=== PATIENT | female | born 1990 | race Caucasian/White ===

== ENCOUNTER 2018-11-04 17:31 | Emergency (ER) | payer OTHER ==
[2018-11-04 17:37] VITALS: BMI 23.8
[2018-11-04] MEDS ORDERED: SODIUM CHLORIDE 1,000 ML IV STA (18:17)
[2018-11-04] MEDS ORDERED: ONDANSETRON 4 MG/2 ML VIAL IVPUSH ONE (18:17)
[2018-11-04] MEDS ORDERED: ACETAMINOPHEN 1000 MG/100 ML VIAL (NON FORMULARY) IVPB ONE (18:17)
--- NOTE | 2018-11-04 18:24 | PDOC ---
History of Present Illness - General Chief Complaint: Injury Stated Complaint: PELVIC PAIN/ FALL/ 8WKS Time Seen by Provider: 11/04/18 18:08 History Source: Patient Exam Limitations: No Limitations - History of Present Illness Travel History: No Initial Comments: 11/04/18 18:19 HISTORY OF PRESENT ILLNESS: 28-year-old woman presents emergency department for evaluation of epigastric pain which is been present for the past 3 weeks. Patient reports the pain is constant but worsens after she eats. Patient reports this causes intermittent nausea with vomiting. Patient improved after she vomits but is still present. Patient reports she was seen at [facility] for similar complaints approximately 2 weeks ago was referred to OB/ BUSINESS REPRESENTATIVE at that time. She has not followed up with [employer] as her insurance is currently not active. While patient was leaving her apartment to come to the emergency department for evaluation she slipped while walking down the stairs landing on her rear end and falling down the final 3 steps of a staircase. Stairs are made of metal were not carpeted. Patient denies any vaginal bleeding but does report some lower abdominal pain after the fall. She denies head trauma or back pain. Denies LOC. No recent travel or sick contacts. PAST MEDICAL HISTORY: Denies past medical history SURGICAL HISTORY: Denies ALLERGIES: No known drug allergies REVIEW OF SYSTEMS General/Constitutional: Denies fever or chills. Denies weakness, weight change. HEENT: Denies change in vision. Denies ear pain or discharge. Denies sore throat. Cardiovascular: Denies chest pain or shortness of breath. Respiratory: Denies cough, wheezing, or hemoptysis. Gastrointestinal: see HPI Genitourinary: Denies dysuria, frequency, or change in urination. Musculoskeletal: Denies joint or muscle swelling or pain. Denies neck or back pain. Skin and breasts: Denies rash or easy bruising. Neurologic: Denies headache, vertigo, loss of consciousness, or loss of sensation. Psychiatric: Denies depression or anxiety. Endocrine: Denies increased thirst. Denies abnormal weight change. Hematologic/Lymphatic: Denies anemia, easy bleeding, or history of blood clots. Allergic/Immunologic: Denies hives or skin allergy. Denies latex allergy. PHYSICAL EXAM General Appearance: Well-appearing, appropriately dressed. No apparent distress , no intoxication. Neck: Supple. Trachea midline. No tenderness, rigidity, carotid bruit, stridor , lymphadenopathy, or thyromegaly. Respiratory/Chest: Lungs CTAB. No shortness of breath, chest tenderness, respiratory distress, accessory muscle use. No crackles, rales, rhonchi, stridor , wheezing, dullness Cardiovascular: RRR. S1, S2. No JVD, murmur, bradycardia, tachycardia. Vascular Pulses: Dorsalis-Pedis (R): 2+, Dorsalis-Pedis (L): 2+ Gastrointestinal/Abdominal: Normal bowel sounds. Abdomen soft, non-distended. Epigastric tenderness. No rebound tenderness. No organomegaly, pulsatile mass, guarding, hernia, hepatomegaly, splenomegaly. Musculoskeletal/Extremities: Normal inspection. FROM of all extremities, normal capillary refill. Pelvis Stable. No CVA tenderness. No tenderness to extremities, pedal edema, swelling, erythema or deformity. Integumentary: Appropriate color, dry, warm. No cyanosis, erythema, jaundice or rash Neurologic: pmo project manager II-XII intact. Fully oriented, alert. Appropriate mood/affect. Motor strength 5/5. No appreciable EOM palsy, facial droop or sensory deficit. Past History - Past Medical History Allergies/Adverse Reactions: Allergies Allergy/AdvReac Type Severity Reaction Status Date / Time No Known Allergies Allergy Verified 11/04/18 17:37 Home Medications: Ambulatory Orders NK [No Known Home Medication] 11/04/18 COPD: No - Suicide/Smoking/Psychosocial Hx Smoking History: Never smoked *Physical Exam - Vital Signs Last Vital Signs Temp Pulse Resp BP Pulse Ox 98.6 F 78 18 100/59 L 99 11/04/18 17:34 11/04/18 17:34 11/04/18 17:34 11/04/18 17:34 11/04/18 17:34 ED Treatment Course - LABORATORY CBC & Chemistry Diagram: 11/04/18 19:00 11/04/18 19:00 - RADIOLOGY Radiology Studies Ordered: Category Date Time Status GALLBLADDER US [US] Stat Ultrasound 11/04/18 18:18 Ordered TRANSVAGINAL US PREG [US] Stat Ultrasound 11/04/18 18:18 Ordered Medical Decision Making - Medical Decision Making 11/04/18 18:24 A/P: 28-year-old female with upper abdominal pain for 3 weeks and lower abdominal pain starting today status post fall on stairs Epigastric tenderness upon palpation Differential diagnosis includes but is not limited to cholecystitis, gastritis, pancreatitis, GERD, infection, abruption of placenta Labs including lipase and beta hCG Urine including culture Normal saline 1 bolus Zofran 4 mg intravenous Tylenol 1 g intravenous Ultrasound of the gallbladder Transvaginal ultrasound Reassess 11/04/18 21:33 Transvaginal ultrasound as read by imaging char conveyor tender: Single live intrauterine gestation at approximately 7 weeks and 6 days based on today's measurements with a heart rate of 159 beats per minute. Nabothian cyst in the cervix which appears closed. 9 mm left ovarian corpus luteal cyst. Right maternal ovary appears normal. No evidence of torsion. No significant free pelvic fluid. Right upper quadrant ultrasound as read by imaging char conveyor tender: No sonographic evidence for cholelithiasis or cholecystitis. No evidence of biliary obstruction. The liver is unremarkable and without enlargement. The right kidney is within normal limits without hydronephrosis. CBC is unremarkable. Chemistries are unremarkable. Beta hCG 100,840. Urine is pending 11/04/18 22:49 Urinalysis is not suggestive of infection. I will discharge the patient home to follow-up with her OB for continued care. I discussed the physical exam findings, ancillary test results and final diagnoses with the patient. I answered all of the patient's questions. The patient was satisfied with the care received and felt comfortable with the discharge plan and treatment plan. The patient will call their primary care physician within 24 hours to arrange follow-up and will return to the Emergency Department with any new, persistent or worsening symptoms. *DC/Admit/Observation/Transfer Diagnosis at time of Disposition: Abdominal pain during intrauterine GERD (gastroesophageal reflux disease) Qualifiers: Esophagitis presence: esophagitis presence not specified Qualified Code(s): K21.9 - Gastro-esophageal reflux disease without esophagitis - Discharge Dispostion Disposition: HOME Condition at time of disposition: Fair Decision to Admit order: No - Referrals - Patient Instructions Additional Instructions: Rest, drink lots of fluids: Teas, water, soups Maricruz dano, carbonated beverages for the bubbles May try peppermint teas Avoid heavy , spicy or fatty foods until symptoms have resolved Avoid contact with others until fevers and symptoms resolved Lots of handwashing and good hygiene Continue [id number] medications for symptomatic relief Tylenol for fever and pain Followup with private physician in one to 2 days as needed Return to emergency department for worsened symptoms, fevers, dehydration - Post Discharge Activity
[2018-11-04] MEDS ORDERED: ACETAMINOPHEN INJECTION 100 ML IVPB ONE (18:36)
[2018-11-04] MEDS ORDERED: ONDANSETRON 4 MG/2 ML VIAL ONE (18:36)
[2018-11-04 19:57] LABS: BASO % 0.6 % (0-2.0); EOS % 3.6 % (0-4.5); HEMATOCRIT 40.4 % (32.4-45.2); HEMOGLOBIN 13.2 GM/dL (10.7-15.3); LYMPH % 28.1 % (8-40); MCH 29.6 pg (25.7-33.7); MCHC 32.7 g/dl (32.0-36.0); MEAN CELL VOLUME 90.5 fl (80-96); MONO % 5.5 % (3.8-10.2); NEUT % 62.2 % (42.8-82.8); PLATELET COUNT 271 K/MM3 (134-434); RBC 4.47 M/mm3 (3.60-5.2); RDW 12.8 % (11.6-15.6); WHITE BLOOD COUNT 10.7 K/mm3 (4.0-10.0)
[2018-11-04 21:27] LABS: ALBUMIN 3.3 g/dl (3.4-5.0); BILIRUBIN,TOTAL 0.2 mg/dL (0.2-1); BLOOD UREA NITROGEN 11.1 mg/dL (7-18); CALCIUM 8.8 mg/dL (8.5-10.1); CREATININE 0.6 mg/dL (0.55-1.3); POTASSIUM 4.5 mmol/L (3.5-5.1)
[2018-11-04 22:44] LABS: URINE APPEARANCE CLEAR; URINE BILIRUBIN NEGATIVE (NEGATIVE); URINE COLOR YELLOW; URINE GLUCOSE (UA) NEGATIVE (NEGATIVE); URINE KETONE NEGATIVE (NEGATIVE); URINE LEUK ESTERASE NEGATIVE (NEGATIVE); URINE NITRITE NEGATIVE (NEGATIVE); URINE PROTEIN NEGATIVE (NEGATIVE); URINE UROBILINOGEN 0.2 mg/dL (0.2-1.0)
[2018-11-04 23:07] VITALS: BP 104/44; PULSE 64; TEMP 98.1
--- NOTE | 2018-11-05 13:12 | EKG ---
Test Reason : Blood Pressure : / mmHG Vent. Rate : 075 BPM Atrial Rate : 075 BPM P-R Int : 160 ms QRS Dur : 084 ms QT Int : 366 ms P-R-T Axes : 061 059 048 degrees QTc Int : 408 ms NORMAL SINUS RHYTHM NORMAL ECG NO PREVIOUS ECGS AVAILABLE Confirmed by MD RAO, CONCHITA ([id number]) on 11/05/2018 1:12:01 PM Referred By: Confirmed By:CONCHITA YEH MD
== END 2018-11-04 23:07 | disposition home or self-care (01) ==
LOC: JER 17:31
PROC: 3E033GC Introduction of Other Therapeutic Substance into Peripheral Vein, Percutaneous Approach (ICD-10-PCS; principal; 2018-11-04)
PROC: 3E033NZ Introduction of Analgesics, Hypnotics, Sedatives into Peripheral Vein, Percutaneous Approach (ICD-10-PCS; 2018-11-04)
DX: O26.891 Other specified pregnancy related conditions, first trimester (principal); O99.611 Diseases of the digestive system complicating pregnancy, first trimester; K92.89 Other specified diseases of the digestive system; K21.9 Gastro-esophageal reflux disease without esophagitis; W10.8XXA Fall (on) (from) other stairs and steps, initial encounter; Y93.89 Activity, other specified; Y92.038 Other place in apartment as the place of occurrence of the external cause; Y99.8 Other external cause status; Z3A.01 Less than 8 weeks gestation of pregnancy
CPT/HCPCS: 36415; 76705-TC; 76817-TC; 80053; 81003; 83690; 84702; 85025; 87086; 93005; 93010; 96374; 96375; 99283-25; J0131; J7030

== ENCOUNTER 2018-11-25 23:10 | Emergency (ER) | payer OTHER | END 2018-11-26 01:02 | disposition home or self-care (01) | LOC: JER 11-26 01:02 | DX: S29.011A Strain of muscle and tendon of front wall of thorax, initial encounter (principal); X58.XXXA Exposure to other specified factors, initial encounter; Y93.89 Activity, other specified; Y92.89 Other specified places as the place of occurrence of the external cause; Y99.8 Other external cause status ==

== ENCOUNTER 2018-12-15 13:57 | Emergency (ER) | payer OTHER ==
[2018-12-15 14:18] VITALS: BP 97/40; PULSE 78; TEMP 98.2; BMI 23.8
--- NOTE | 2018-12-15 14:18 | PDOC ---
Rapid Medical Evaluation Chief Complaint: Pain Time Seen by Provider: 12/15/18 14:13 Medical Evaluation: Allergies Allergy/AdvReac Type Severity Reaction Status Date / Time No Known Allergies Allergy Verified 11/04/18 17:37 12/15/18 14:13 I have performed a brief in-person evaluation of this patient. The patient presents with a chief complaint of: abd pain x 2 days, chills, no px with bowels or urine. No vag bleeding or drainage. Grav6, Para1 AB 2 , Misscar 2 Pertinent physical exam findings: abd soft, RUQ/ LLQ, tender- I have ordered the following: UA/UCX, cbc, cmp, lipase, US RUQ The patient will proceed to the ED for further evaluation. Discharge Disposition - Diagnosis Abdominal pain during intrauterine - Referrals - Patient Instructions - Post Discharge Activity
[2018-12-15 15:51] LABS: ALBUMIN 3.2 g/dl (3.4-5.0); BILIRUBIN,TOTAL 0.2 mg/dL (0.2-1); CALCIUM 9.5 mg/dL (8.5-10.1); CREATININE 0.6 mg/dL (0.55-1.3); POTASSIUM 4.3 mmol/L (3.5-5.1); TOT PROT 7.3 g/dl (6.4-8.2)
--- NOTE | 2018-12-15 16:28 | PDOC ---
History of Present Illness - General Chief Complaint: Pain, Acute Stated Complaint: 12 W PREG/ABD PAIN Time Seen by Provider: 12/15/18 14:13 History Source: Patient - History of Present Illness Initial Comments: 12/15/18 16:26 28 year old female c/o RUQ pain x 1 day, + nausea , denies vomiting, lower abdominal pain, urinary symptoms , flank pain, vaginal bleeding, pelvic pain. denies fever/ chills. + IUP in [address] [place] [id number] 0 Past History - Past Medical History Allergies/Adverse Reactions: Allergies Allergy/AdvReac Type Severity Reaction Status Date / Time No Known Allergies Allergy Verified 11/04/18 17:37 Home Medications: Ambulatory Orders NK [No Known Home Medication] 11/04/18 COPD: No - Reproductive History Is Patient Now?: Yes (#): 5 Para: 1 Therapeutic (s) & number: Yes (1) Spontaneous : 2 - Suicide/Smoking/Psychosocial Hx Smoking History: Never smoked Information on smoking cessation initiated: No Hx Alcohol Use: No Drug/Substance Use Hx: No Review of Systems - Review of Systems Able to Perform ROS?: Yes Is the patient limited Upper Sorbian proficient: No Constitutional: No: Symptoms Reported, See HPI, Diaphoresis, Fever, Loss of Appetite, Malaise, Night Sweats, Weakness, Weight Stable, Unintentional Wgt. Loss, Unexplained wgt Loss, Other ABD/GI: Yes: Nausea, Abdominal cramping (RUQ pain) *Physical Exam - Vital Signs Last Vital Signs Temp Pulse Resp BP Pulse Ox 98.2 F 78 17 97/40 L 98 12/15/18 14:14 12/15/18 14:14 12/15/18 14:14 12/15/18 14:14 12/15/18 14:14 - Physical Exam General Appearance: Yes: Appropriately Dressed Respiratory/Chest: positive: Lungs Clear, Normal Breath Sounds Gastrointestinal/Abdominal: positive: Normal Bowel Sounds, Tender (epigastric , ), Soft Musculoskeletal: positive: Normal Inspection. negative: CVA Tenderness Extremity: positive: Normal Capillary Refill, Normal Inspection, Normal Range of Motion Integumentary: positive: Normal Color, Dry, Warm Neurologic: positive: Fully Oriented, Alert, Normal Mood/Affect ED Treatment Course - LABORATORY CBC & Chemistry Diagram: 12/15/18 14:57 - ADDITIONAL ORDERS Additional order review: Laboratory Results 12/15/18 12/15/18 14:57 14:57 Sodium 140 Potassium 4.3 Chloride 107 Carbon Dioxide 27 Anion Gap 7 L BUN 8.0 Creatinine 0.6 Est GFR (CKD-EPI)AfAm 144.78 Est GFR (CKD-EPI)NonAf 124.92 Random Glucose 64 L Calcium 9.5 Total Bilirubin 0.2 AST 15 ALT 20 Alkaline Phosphatase 61 Total Protein 7.3 Albumin 3.2 L Lipase 182 Beta HCG, Quant 99189.7 Progress Note - Progress Note Progress Note: A: abdominal pain upper abdominal area P; cmp UA beta hcg Abd US outpatient follow up Medical Decision Making - Medical Decision Making 12/15/18 16:38 patient has minimal pain. discussed food choices (less gas producing food) / smaller meals. advised return for worsening symptoms *DC/Admit/Observation/Transfer Diagnosis at time of Disposition: Upper abdominal pain - Discharge Dispostion Disposition: HOME Condition at time of disposition: Stable - Referrals - Patient Instructions Printed Discharge Instructions: How to Avoid Gas Additional Instructions: drink plenty of fluids avoid gas producing foods follow up with you boilermaker helper as soon as possible return to the ER for any worsening symptoms - Post Discharge Activity Forms/Work/School Notes: Back to Work
[2018-12-15 16:29] LABS: URINE APPEARANCE CLEAR; URINE BILIRUBIN NEGATIVE (NEGATIVE); URINE COLOR YELLOW; URINE GLUCOSE (UA) NEGATIVE (NEGATIVE); URINE KETONE NEGATIVE (NEGATIVE); URINE LEUK ESTERASE NEGATIVE (NEGATIVE); URINE NITRITE NEGATIVE (NEGATIVE); URINE PROTEIN NEGATIVE (NEGATIVE); URINE UROBILINOGEN 0.2 mg/dL (0.2-1.0)
[2018-12-15] MEDS ORDERED: ONDANSETRON *ODT* 4 MG TABLET SL ONE (16:35)
[2018-12-15] MEDS ORDERED: ONDANSETRON *ODT* 4 MG TABLET ONE (16:38)
--- NOTE | 2018-12-15 18:50 | PDOC ---
*Physical Exam - Vital Signs Last Vital Signs Temp Pulse Resp BP Pulse Ox 98.2 F 78 17 97/40 L 98 12/15/18 14:14 12/15/18 14:14 12/15/18 14:14 12/15/18 14:14 12/15/18 14:14 ED Treatment Course - LABORATORY CBC & Chemistry Diagram: 12/15/18 14:57 - ADDITIONAL ORDERS Additional order review: Laboratory Results 12/15/18 12/15/18 12/15/18 15:19 14:57 14:57 Sodium 140 Potassium 4.3 Chloride 107 Carbon Dioxide 27 Anion Gap 7 L BUN 8.0 Creatinine 0.6 Est GFR (CKD-EPI)AfAm 144.78 Est GFR (CKD-EPI)NonAf 124.92 Random Glucose 64 L Calcium 9.5 Total Bilirubin 0.2 AST 15 ALT 20 Alkaline Phosphatase 61 Total Protein 7.3 Albumin 3.2 L Lipase 182 Beta HCG, Quant 71945.7 Urine Color Yellow Urine Appearance Clear Urine pH 7.0 Ur Specific [place] 1.011 Urine Protein Negative Urine Glucose (UA) Negative Urine Ketones Negative Urine Blood Negative Urine Nitrite Negative Urine Bilirubin Negative Urine Urobilinogen 0.2 Ur Leukocyte Esterase Negative - Medications Given in the ED: ED Medications Discontinued Medications Generic Name Dose Route Start Last Admin Trade Name Freq PRN Reason Stop Dose Admin Ondansetron HCl 4 mg 12/15/18 16:35 12/15/18 16:42 Zofran Odt - SL 12/15/18 16:36 4 mg ONCE ONE Administration Medical Decision Making - Medical Decision Making 12/15/18 18:49 Pt seen by Midlevel Provider under my direct supervision Ancillary studies reviewed I agree with plan as outlined by Midlevel Provider Laboratory Tests 12/15/18 12/15/18 12/15/18 14:57 14:57 15:19 BUN 8.0 Creatinine 0.6 Total Bilirubin 0.2 AST 15 ALT 20 Lipase 182 Beta HCG, Quant 34895.7 Urine Ketones Negative Urine Blood Negative Urine Nitrite Negative Ur Leukocyte Esterase Negative 12/15/18 18:50 US - no stones, no GB wall thickening *DC/Admit/Observation/Transfer Diagnosis at time of Disposition: Upper abdominal pain - Discharge Dispostion Disposition: HOME Condition at time of disposition: Stable - Referrals - Patient Instructions Printed Discharge Instructions: How to Avoid Gas Additional Instructions: drink plenty of fluids avoid gas producing foods follow up with you security assistant as soon as possible return to the ER for any worsening symptoms - Post Discharge Activity Forms/Work/School Notes: Back to Work
== END 2018-12-15 16:42 | disposition home or self-care (01) ==
LOC: JER 13:57
DX: O26.891 Other specified pregnancy related conditions, first trimester (principal); Z3A.12 12 weeks gestation of pregnancy; R10.11 Right upper quadrant pain
CPT/HCPCS: 36415; 76705-TC; 80053; 81003; 83690; 84702; 87086; 99282-25; Q0162

== ENCOUNTER 2018-12-29 12:16 | Emergency (ER) | payer OTHER ==
[2018-12-29 12:27] VITALS: BMI 24.1
--- NOTE | 2018-12-29 13:42 | PDOC ---
History of Present Illness - General Chief Complaint: Pain Stated Complaint: ABD PAIN 15 WKS PREG Time Seen by Provider: 12/29/18 13:22 History Source: Patient Exam Limitations: No Limitations - History of Present Illness Initial Comments: Shelia Morgan is a 28 yo F, 14 weeks with confirmed IUP, who presents to the [facility] because she had suprapubic abdominal TTP which began this morning and radiated to her groin. She states the pain is around 7 out of 10 and is worsened when she pushes on her abdomen. She states she has also been having "excessive normal clear discharge" for the past day. She denies passage of blood or clots. She states the pain also radiates to her back. She endorses chronic nausea from but no recent emesis. Social Hx: Denies smoking, drinking, or other substance usage PSH: 2 elective abortions OB: Dr. Kendrick PCP: None Allergies: NKA, NKDA Past History - Past Medical History Allergies/Adverse Reactions: Allergies Allergy/AdvReac Type Severity Reaction Status Date / Time No Known Allergies Allergy Verified 12/29/18 12:24 Home Medications: Ambulatory Orders NK [No Known Home Medication] 11/04/18 COPD: No - Reproductive History Is Patient Now?: Yes (14 wks 5 days) (#): 6 Para: 1 Therapeutic (s) & number: Yes (2) Spontaneous : 2 - Immunization History Immunization Up to Date: Yes - Suicide/Smoking/Psychosocial Hx Smoking History: Never smoked Information on smoking cessation initiated: No Hx Alcohol Use: No Drug/Substance Use Hx: No Review of Systems - Review of Systems Able to Perform ROS?: Yes Comments:: CONSTITUTIONAL: Absent: fever, no chills, no fatigue EYES: Absent: visual changes ENT: Absent: ear pain, no sore throat CARDIOVASCULAR: Absent: chest pain, no palpitations RESPIRATORY: Absent: cough, no SOB GI: Present: Abdominal pain, nausea Absent: no vomiting, no constipation, no diarrhea GENITOURINARY: Present: Frequency Absent: dysuria, no hematuria MUSKULOSKELETAL: Present: Back pain Absent: no arthralgia, no myalgia SKIN: Absent: rash NEURO: Absent: headache *Physical Exam - Vital Signs Last Vital Signs Temp Pulse Resp BP Pulse Ox 98.2 F 76 17 106/59 L 99 12/29/18 12:24 12/29/18 12:24 12/29/18 12:24 12/29/18 12:24 12/29/18 12:24 - Physical Exam Comments: GENERAL: Well-appearing, well-nourished. No apparent distress. HEENT: Normocephalic, atraumatic. PERRL, EOM intact. CARDIOVASCULAR: Normal S1, S2. Regular rate and rhythm. PULMONARY: No evidence of respiratory distress. Lungs clear to auscultation bilaterally. No wheezing, rales or rhonchi. ABDOMEN: There is nadeem-umbilical and suprapubic TTP as well as RLQ abdominat TTP. The other abdominal regions are not TTP. Normal bowel sounds. Abdomen is soft and non-distended. EXTREMITIES: Normal ROM in all four extremities. No gross deformities. SKIN: Warm, dry. No rash NEUROLOGICAL: No focal neurological deficits. Female Pelvic Exam: positive: normal external exam, adnexal tenderness ( significant right adnexal TTP). negative: cervical os closed (Open), normal adnexa, CMT, discharge, lesions, Bartholin mass, vaginal bleeding ED Treatment Course - LABORATORY CBC & Chemistry Diagram: 12/29/18 15:03 12/29/18 15:03 Medical Decision Making - Medical Decision Making Shelia Morgan is a 28 yo F, 14 weeks with confirmed IUP, who presents to the [facility] because she had suprapubic abdominal TTP which began this morning and radiated to her groin. She states the pain is around 7 out of 10 and is worsened when she pushes on her abdomen. She states she has also been having "excessive normal clear discharge" for the past day. She denies passage of blood or clots. She states the pain also radiates to her back. She endorses chronic nausea from but no recent emesis. Vital Signs Temp Pulse Resp BP Pulse Ox 98.2 F 76 17 106/59 L 99 12/29/18 12:24 12/29/18 12:24 12/29/18 12:24 12/29/18 12:24 12/29/18 12:24 - PE notable for right adnexal TTP DDx IBNLT: UTI/pylo, apppendicitis, ovarian cyst/torsion/TOA, - inevitable/missed/partial, ectopic , or renal colic Plan: Labs, Urine, analgesia, IV hydration, TVUS, re-assess. Labs: Cbc nornmal. Cmp - unremarkable Urine: Clean. No signs of infection or blood. TVUS: Unremarkable. No evidence of torsion. Re-assessment: Patient feels much better, is seen eating a large panini, and no longer has abdominal pain. Disposition: Home with GI follow up *DC/Admit/Observation/Transfer Diagnosis at time of Disposition: Abdominal pain during intrauterine - Discharge Dispostion Disposition: HOME Condition at time of disposition: Improved Decision to Admit order: No - Referrals Referrals: Erika Wells DO [Staff Physician] - - Patient Instructions Printed Discharge Instructions: DI for Abdominal Pain -- Early Additional Instructions: You came into the ER with abdominal pain. We did an ultrasound which showed your ovaries do not have an infection. Your baby had a normal heart rate in our ER. We have handed you a copy of your ultrasound report which shows no abnormalities other than your baby is currently in breech position. Please make sure to schedule a follow up with your OB doctor in the next 3 to 5 days to make sure you are being taken care of and getting better. Come back to the ER immediately if your pain worsens or you have any other new or worsening concerns. Thank you for coming to the [facility] ER. We hope you feel better soon! Print Language: KYRGYZ - Post Discharge Activity Forms/Work/School Notes: Back to Work
[2018-12-29] MEDS ORDERED: SODIUM CHLORIDE 1,000 ML IV STA (13:51)
[2018-12-29] MEDS ORDERED: ACETAMINOPHEN 1000 MG/100 ML VIAL (NON FORMULARY) IVPB ONE (13:51)
[2018-12-29] MEDS ORDERED: PYRIDOXINE HCL (B-6) 100 MG TABLET PO ONE (13:54)
[2018-12-29] MEDS ORDERED: ACETAMINOPHEN INJECTION 100 ML IVPB ONE (14:01)
[2018-12-29 14:41] LABS: PH,URINE 5.5 (5.0-8.0); URINE APPEARANCE CLEAR; URINE BILIRUBIN NEGATIVE (NEGATIVE); URINE COLOR YELLOW; URINE GLUCOSE (UA) NEGATIVE (NEGATIVE); URINE KETONE NEGATIVE (NEGATIVE); URINE LEUK ESTERASE NEGATIVE (NEGATIVE); URINE NITRITE NEGATIVE (NEGATIVE); URINE PROTEIN NEGATIVE (NEGATIVE); URINE UROBILINOGEN 0.2 mg/dL (0.2-1.0)
[2018-12-29 16:06] LABS: BASO % 0.5 % (0-2.0); EOS % 6.1 % (0-4.5); HEMATOCRIT 40.2 % (32.4-45.2); HEMOGLOBIN 13.7 GM/dL (10.7-15.3); LYMPH % 22.1 % (8-40); MCH 30.7 pg (25.7-33.7); MCHC 34.2 g/dl (32.0-36.0); MEAN CELL VOLUME 89.8 fl (80-96); MEAN PLT VOLUME 8.8 fl (7.5-11.1); MONO % 5.3 % (3.8-10.2); PLATELET COUNT 290 K/MM3 (134-434); RBC 4.48 M/mm3 (3.60-5.2); WHITE BLOOD COUNT 11.2 K/mm3 (4.0-10.0)
[2018-12-29 16:17] LABS: INR 0.98 (0.83-1.09); PROTHROMBIN TIME (PATIENT) 11.6 SEC (9.7-13.0)
[2018-12-29 16:34] LABS: ALBUMIN 3.1 g/dl (3.4-5.0); BILIRUBIN,TOTAL 0.2 mg/dL (0.2-1); BLOOD UREA NITROGEN 11.7 mg/dL (7-18); CALCIUM 9.5 mg/dL (8.5-10.1); CREATININE 0.5 mg/dL (0.55-1.3); POTASSIUM 4.3 mmol/L (3.5-5.1); TOT PROT 7.2 g/dl (6.4-8.2)
[2018-12-29 16:46] LABS: PHOSPHOROUS 4.4 mg/dL (2.5-4.9)
[2018-12-29 16:47] LABS: LIPASE < 10 U/L (73-393)
--- NOTE | 2018-12-29 17:00 | PDOC ---
Attending Attestation - Resident Resident Name: Richar Schmitz - ED Attending Attestation I have performed the following: I have examined & evaluated the patient, The case was reviewed & discussed with the resident, I agree w/resident's findings & plan, Exceptions are as noted - HPI HPI: 12/29/18 16:57 28 yo F currently 14 weeks here with c/o lower abd pain and spotting today while at work. states was pinkish. denies trauma. pain is suprapubic radiating to groin. no other complaints. no urinary complaints. bleeding has since stopped. - Physicial Exam PE: 12/29/18 16:58 awake alert lungs clear bilat heart rrr no mrg abd soft gravid nontender. ext wwp no edema. nuero alert oriented x 3. - Medical Decision Making 12/29/18 16:58 pt with 14 weeks vaginal bleeding. had mild tenderness to adnexa on pelvic exam per DR Schmitz. differential ovarian cyst. torsion. ligment pain of . uti, plan labs tvus ov/ ut. tylenol as needed ua. pt us with normal ovarian flow, live IUP ua negative for infection. on reassessment pt with nontender exam. eating without difficulty. will dc home.
[2018-12-29 18:15] VITALS: BP 109/66; PULSE 98; TEMP 98.4
== END 2018-12-29 18:20 | disposition home or self-care (01) ==
LOC: JER 12:16
PROC: 3E033NZ Introduction of Analgesics, Hypnotics, Sedatives into Peripheral Vein, Percutaneous Approach (ICD-10-PCS; principal; 2018-12-29)
PROC: 3E0337Z Introduction of Electrolytic and Water Balance Substance into Peripheral Vein, Percutaneous Approach (ICD-10-PCS; 2018-12-29)
DX: N89.8 Other specified noninflammatory disorders of vagina (principal); O26.891 Other specified pregnancy related conditions, first trimester; Z3A.14 14 weeks gestation of pregnancy; R10.9 Unspecified abdominal pain
CPT/HCPCS: 36415; 76817-TC; 80053; 81003; 83690; 83735; 84100; 84702; 85025; 85610; 87086; 99283-25; J0131; J7030

== ENCOUNTER 2019-05-31 08:40 | Inpatient (IN) | payer OTHER ==
[2019-05-31] MEDS ORDERED: DINOPROSTONE 10 MG VAGINAL SUPPOSITORY VG ONE (09:30)
[2019-05-31 09:41] VITALS: BMI 31.1
[2019-05-31] MEDS: DEXTROSE 5%-LACTATED RINGERS 1,000 ML IV SCH (09:45)
[2019-05-31 10:48] LABS: INR 0.99 (0.83-1.09); PROTHROMBIN TIME (PATIENT) 11.7 SEC (9.7-13.0)
[2019-05-31 10:51] LABS: ACTIVATED PTT 25.4 SECONDS (25.2-36.5)
[2019-05-31 11:02] LABS: ALBUMIN 2.3 g/dl (3.4-5.0); BILIRUBIN,TOTAL 0.3 mg/dL (0.2-1); BLOOD UREA NITROGEN 8.4 mg/dL (7-18); CALCIUM 8.3 mg/dL (8.5-10.1); CREATININE 0.6 mg/dL (0.55-1.3); POTASSIUM 4.1 mmol/L (3.5-5.1); TOT PROT 6.3 g/dl (6.4-8.2)
[2019-05-31 11:53] LABS: BASO % 0.5 % (0-2.0); EOS % 4.6 % (0-4.5); HEMATOCRIT 36.8 % (32.4-45.2); LYMPH % 29.3 % (8-40); MCH 28.7 pg (25.7-33.7); MCHC 32.6 g/dl (32.0-36.0); MEAN PLT VOLUME 9.3 fl (7.5-11.1); MONO % 4.6 % (3.8-10.2); PLATELET COUNT 294 K/MM3 (134-434); RBC 4.18 M/mm3 (3.60-5.2); RDW 14.1 % (11.6-15.6); WHITE BLOOD COUNT 8.2 K/mm3 (4.0-10.0)
[2019-05-31] MEDS ORDERED: PROMETHAZINE HCL 25 MG/1 ML VIAL IVPUSH ONE (14:40)
[2019-05-31] MEDS ORDERED: BUTORPHANOL TARTRATE 1 MG/ML VIAL IVPUSH ONE (14:40)
--- NOTE | 2019-05-31 14:45 | HP ---
Past Medical History - Primary Care Physician PCP:: Edson Kendrick - Admission Chief Complaint: 37 week , cholestasis of , for cervidil induction History of Present Illness: 28 yo f 0 5 1 , 37 weeks with hx of cholestasis of admitted for cervidil induction, risks associated with induction discussed , cx 1 cm 50 vx - 3 mi, fhr cat 1. no contraction History Source: Patient Limitations to Obtaining History: No Limitations - Past Medical History Gastrointestinal: Yes: Other (cholestasis of ) ...: 7 ...Para: 1 ...Term: 1 ...Spon : 2 ...Induced : 3 ...Multiple Gestation: 0 ...LMP: 09/13/18 ... Weeks Gestation by Dates: 37.1 ...EDC by Dates: 06/20/19 ...EDC by Sono: 06/20/19 - Past Surgical History Hx Myomectomy: No Hx Transabdominal Cerclage: No - Smoking History Smoking history: Never smoked - Alcohol/Substance Use Hx Alcohol Use: No - Social History History of Recent Travel: No Home Medications - Allergies Allergies/Adverse Reactions: Allergies Allergy/AdvReac Type Severity Reaction Status Date / Time No Known Allergies Allergy Verified 05/22/19 10:23 - Home Medications Home Medications: Ambulatory Orders Vitamins (Sjr) - 1 tab PO DAILY 02/04/19 Ursodiol [Actigal] 300 mg PO DAILY 05/22/19 Review of Systems - Review of Systems Constitutional: reports: No Symptoms Eyes: reports: No Symptoms HENT: reports: No Symptoms Neck: reports: No Symptoms Cardiovascular: reports: No Symptoms Respiratory: reports: No Symptoms Gastrointestinal: reports: No Symptoms Genitourinary: reports: No Symptoms Breasts: reports: No Symptoms Reported Musculoskeletal: reports: No Symptoms Integumentary: reports: No Symptoms Neurological: reports: No Symptoms Endocrine: reports: No Symptoms Hematology/Lymphatic: reports: No Symptoms Psychiatric: reports: No Symptoms Physical Exam - Maternity Vital Signs: Vital Signs Temperature 98.2 F 05/31/19 14:00 Pulse Rate 91 H 05/31/19 14:00 Respiratory Rate 18 05/31/19 14:00 Blood Pressure 108/65 05/31/19 14:00 O2 Sat by Pulse Oximetry (%) Constitutional: Yes: Well Nourished, No Distress, Calm Eyes: Yes: WNL, Conjunctiva Clear, EOM Intact HENT: Yes: WNL, Atraumatic, Normocephalic Neck: Yes: WNL, Supple, Trachea Midline Cardiovascular: Yes: WNL, Regular Rate and Rhythm Breast(s): Yes: WNL - Abdominal Exam/OB Fundal Height: 38 Number of Fetuses: Single Presentation: Vertex Contractions: No Intensity: Unaware Monitor Mode: External Heart Rate Location: [facility] Category: I Accelerations: Non-Uniform Decelerations: None - Vaginal Exam/OB Vaginal Bleediing: No Speculum Exam: No Dilatation (cm): 1cm Effacement (%): 50 Amniotic Membrane Status: Intact Presentation: Vertex/Position Station: -3 - Physical Exam Musculoskeletal: Yes: WNL Extremities: Yes: WNL Edema: LLE: Trace, RLE: Trace Deep Tendon Reflex Grade: Normal +2 ...Motor Strength: WNL Psychiatric: Yes: WNL - Labs Lab Results: CBC, BMP 05/31/19 10:10 05/31/19 10:10 Hemorrhage Risk Assessment - Risk Factors Medium Risk Factors: Yes: None High Risk Factors: Yes: None Risk Score: 1 Risk Level: Medium Risk Problem List - Problems (1) with 37 weeks completed gestation Code(s): Z3A.37 - 37 WEEKS GESTATION OF (2) Cholestasis during Code(s): O26.619 - LIVER AND BILIARY TRACT DISORD IN , UNSP TRIMESTER; K83.1 - OBSTRUCTION OF BILE DUCT Qualifiers: Trimester: third trimester Qualified Code(s): O26.613 - Liver and biliary tract disorders in , third trimester; K83.1 - Obstruction of bile duct Assessment/Plan admit for cervidil induction risks discussed ulternatives has discussed with patient FHM
[2019-05-31] MEDS ORDERED: AMPICILLIN SODIUM 2 GM VIAL IVPB ONE (23:00)
[2019-05-31] MEDS ORDERED: SODIUM CHLORIDE 100 ML IVPB ONE (23:13)
[2019-05-31] MEDS ORDERED: AMPICILLIN SODIUM 2 GM VIAL ONE (23:13)
[2019-05-31] MEDS ORDERED: BUTORPHANOL TARTRATE 1 MG/ML VIAL ONE ×2 (23:35)
[2019-05-31] MEDS ORDERED: PROMETHAZINE HCL 25 MG/1 ML VIAL ONE (23:36)
[2019-06-01] MEDS ORDERED: ELECTROLYTE-148 SOLN 1,000 ML IV ONE (02:00)
[2019-06-01] MEDS ORDERED: FENTANYL/BUPIVACAINE/NS/PF - PCEA - 50 ML DISP.SYRIN EP ONE (02:11)
--- NOTE | 2019-06-01 02:12 | PN ---
Progress Note (short form) - Note Progress Note: cx 3 cm 80 vx 0 mr, clear ,fhr cat 1, has a lot of pain moving in bed unable to monitor fhr, scalp electrode applied , will take epidural Problem List - Problems (1) with 37 weeks completed gestation Code(s): Z3A.37 - 37 WEEKS GESTATION OF (2) Cholestasis during Code(s): O26.619 - LIVER AND BILIARY TRACT DISORD IN , UNSP TRIMESTER; K83.1 - OBSTRUCTION OF BILE DUCT Qualifiers: Trimester: third trimester Qualified Code(s): O26.613 - Liver and biliary tract disorders in , third trimester; K83.1 - Obstruction of bile duct
[2019-06-01] MEDS ORDERED: SODIUM CHLORIDE 100 ML IVPB ONE ×2 (02:24→06:32)
[2019-06-01] MEDS ORDERED: AMPICILLIN SODIUM 1 GM VIAL ONE ×2 (02:24→06:32)
[2019-06-01] MEDS ORDERED: NALOXONE HCL 0.4 MG/ML VIAL IVPUSH PRN (02:28)
[2019-06-01] MEDS ORDERED: LIDO 2%/EPI 1:200000 PRESRVFRE (20 ML SDVIAL) ONE (02:29)
[2019-06-01] MEDS ORDERED: FENTANYL/BUPIVACAINE/NS/PF - PCEA - 50 ML DISP.SYRIN EP SCH (02:30)
[2019-06-01] MEDS: AMPICILLIN SODIUM 1 GM VIAL IVPB SCH (03:00)
[2019-06-01] MEDS: ELECTROLYTE-148 SOLN 1,000 ML IV SCH (03:00)
[2019-06-01] MEDS: OXYTOCIN 30 UNITS in 0.9% NS 30 UNIT/500 ML INFUS.BAG IVPB SCH (04:00)
[2019-06-01] MEDS ORDERED: LIDOCAINE HCL 1% PRESERVATIVE FREE - 30ML VIAL ONE (06:32)
[2019-06-01] MEDS ORDERED: OXYTOCIN 20 UNITS in 0.9% NS 20 UNIT/1,000 ML INFUS.BAG IV ONE (06:33)
[2019-06-01] MEDS ORDERED: METHYLERGONOVINE MALEATE 0.2 MG/1 ML AMP IM PRN (07:44)
[2019-06-01] MEDS ORDERED: WITCH HAZEL 50% (TUCKS) 40 PAD/JAR PAD TP PRN (07:44)
[2019-06-01] MEDS ORDERED: BISACODYL 10 MG SUPP.RECT RC PRN (07:44)
[2019-06-01] MEDS ORDERED: BENZOCAINE 28 GM HEMORRHOIDAL OINTMENT TP PRN (07:44)
[2019-06-01] MEDS ORDERED: BENZOCAINE 20% 57 GM BOTTLE TP PRN (07:44)
[2019-06-01] MEDS ORDERED: D5W-LR W/ 20 UNITS OXYTOCIN 20 UNIT/1,000 ML INFUS.BAG IV SCH (07:45)
--- NOTE | 2019-06-01 07:48 | PN ---
Delivery - Delivery Vaginal Delivery: Spontaneous Type of Anesthesia: Epidural (cx fully dilated , head delivered ,NAOMI, nasopharynx suctioned , ant and post. shoulder with no difficulty , live baby girl 9/9 , placenta complete, uterus explored , no laceration, ebl 300 cc , no complication , baby bonded with MOM) Episiotomy/Laceration: None Delivery, Single - [place] Feeding Plan Initial Plan: Elected not to breastfeed exclusively throughout hospitalization
[2019-06-01] MEDS: FERROUS SO4 325 MG TABLET (FP) PO SCH ×2 (09:48→23:12)
[2019-06-01] MEDS: PRENATAL VITAMINS W/ FOLIC ACID TABLET (FP) PO SCH (09:49)
[2019-06-01] MEDS: IBUPROFEN 600 MG TABLET (FP) PO PRN ×3 (11:32→23:13)
[2019-06-01] MEDS: ACETAMINOPHEN 325 MG TABLET (FP) PO PRN ×3 (11:32→23:13)
--- NOTE | 2019-06-02 07:59 | PN ---
Post Progress Note - Subjective Subjective: no complains Post Day: 1 Type of Delivery: Vital Signs: Vital Signs Temperature 98.3 F 06/02/19 06:00 Pulse Rate 80 06/02/19 06:00 Respiratory Rate 18 06/02/19 06:00 Blood Pressure 114/76 06/02/19 06:00 O2 Sat by Pulse Oximetry (%) 96 06/01/19 06:45 Breast Exam: Yes: Soft, Other (BF ). No: Engorged Uterus: Yes: Fundus Firm, Fundus below umbilicus. No: Non-tender Lochia: Yes: Rubra Lochia, amount: Moderate Extremities: No: Calves non-tender, Edema Perineum: Yes: Intact Activity: Ambulating - Labs Labs: CBC WBC 8.2 K/mm3 (4.0-10.0) 05/31/19 10:10 RBC 4.18 M/mm3 (3.60-5.2) 05/31/19 10:10 Hgb 12.0 GM/dL (10.7-15.3) 05/31/19 10:10 Hct 36.8 % (32.4-45.2) 05/31/19 10:10 MCV 88.0 fl (80-96) 05/31/19 10:10 MCH 28.7 pg (25.7-33.7) 05/31/19 10:10 MCHC 32.6 g/dl (32.0-36.0) 05/31/19 10:10 RDW 14.1 % (11.6-15.6) 05/31/19 10:10 Plt Count 294 K/MM3 (134-434) 05/31/19 10:10 MPV 9.3 fl (7.5-11.1) D 05/31/19 10:10 Absolute Neuts (auto) 5.0 K/mm3 (1.5-8.0) 05/31/19 10:10 Neutrophils % 61.0 % (42.8-82.8) 05/31/19 10:10 Lymphocytes % 29.3 % (8-40) 05/31/19 10:10 Monocytes % 4.6 % (3.8-10.2) 05/31/19 10:10 Eosinophils % 4.6 % (0-4.5) H 05/31/19 10:10 Basophils % 0.5 % (0-2.0) 05/31/19 10:10 Nucleated RBC % 0 % (0-0) 05/31/19 10:10 Problem List - Problems (1) care and examination of lactating mother Code(s): Z39.1 - ENCOUNTER FOR CARE AND EXAMINATION OF LACTATING MOTHER Assessment/Plan stable plan today cbc pending discharge tomorrow
[2019-06-02] MEDS ORDERED: DIPHTH,PERTUSS(ACELL),TET 0.5 ML DISP.SYRIN IM ONE (10:00)
[2019-06-02] MEDS: AMPICILLIN SODIUM 1 GM VIAL IVPB SCH (10:10)
[2019-06-02] MEDS: FERROUS SO4 325 MG TABLET (FP) PO SCH ×2 (10:15→21:08)
[2019-06-02] MEDS: PRENATAL VITAMINS W/ FOLIC ACID TABLET (FP) PO SCH (10:15)
[2019-06-02 10:53] LABS: BASO % 0.4 % (0-2.0); EOS % 3.8 % (0-4.5); HEMOGLOBIN 11.5 GM/dL (10.7-15.3); LYMPH % 26.5 % (8-40); MCH 28.5 pg (25.7-33.7); MCHC 32.8 g/dl (32.0-36.0); MEAN CELL VOLUME 86.9 fl (80-96); MEAN PLT VOLUME 9.1 fl (7.5-11.1); MONO % 6.1 % (3.8-10.2); NEUT % 63.2 % (42.8-82.8); PLATELET COUNT 299 K/MM3 (134-434); RBC 4.02 M/mm3 (3.60-5.2); RDW 14.4 % (11.6-15.6); WHITE BLOOD COUNT 9.6 K/mm3 (4.0-10.0)
[2019-06-02] MEDS: IBUPROFEN 600 MG TABLET (FP) PO PRN (12:19)
[2019-06-02] MEDS: ACETAMINOPHEN 325 MG TABLET (FP) PO PRN (12:20)
[2019-06-02] MEDS: OXYTOCIN 30 UNITS in 0.9% NS 30 UNIT/500 ML INFUS.BAG IVPB SCH ×2 (19:15→19:18)
[2019-06-02] MEDS: ELECTROLYTE-148 SOLN 1,000 ML IV SCH ×2 (19:17→19:18)
[2019-06-02] MEDS: DEXTROSE 5%-LACTATED RINGERS 1,000 ML IV SCH (19:18)
[2019-06-02] MEDS ORDERED: SENNOSIDES/DOCUSATE COMBO (SENNA PLUS) TABLET (UD) PO PRN (22:00)
[2019-06-03] MEDS: ACETAMINOPHEN 325 MG TABLET (FP) PO PRN ×2 (04:38→09:07)
[2019-06-03] MEDS: IBUPROFEN 600 MG TABLET (FP) PO PRN ×2 (04:39→09:08)
[2019-06-03] MEDS: FERROUS SO4 325 MG TABLET (FP) PO SCH (09:07)
[2019-06-03] MEDS: PRENATAL VITAMINS W/ FOLIC ACID TABLET (FP) PO SCH (09:07)
--- NOTE | 2019-06-03 09:11 | DS ---
Physical Exam-GEOPHYSICIST Vital Signs: Vital Signs Temperature 97.4 F L 06/02/19 22:00 Pulse Rate 88 06/02/19 22:00 Respiratory Rate 18 06/02/19 22:00 Blood Pressure 121/77 06/02/19 22:00 O2 Sat by Pulse Oximetry (%) 96 06/01/19 06:45 Constitutional: Yes: Well Nourished, No Distress, Other (no c/o itching) Eyes: Yes: WNL HENT: Yes: WNL, Normocephalic Neck: Yes: WNL Cardiovascular: Yes: WNL, Regular Rate and Rhythm Respiratory: Yes: WNL Gastrointestinal: Yes: WNL, Normal Bowel Sounds, Abdomen, Obese, Other (bm done) . No: Tenderness Renal/: Yes: WNL. No: CVA Tenderness - Left, CVA Tenderness - Right ....Post : Yes: Uterus firm, Uterus non-tender, Moderate lochia rubra ( perineum intact) Breast(s): Yes: WNL ( breast feeding breast soft) Musculoskeletal: Yes: WNL Extremities: Yes: WNL. No: Calf Tenderness Edema: LLE: 1+, RLE: 1+ Neurological: Yes: WNL, Alert, Oriented ...Motor Strength: WNL Psychiatric: Yes: WNL, Alert, Oriented Labs: CBC, BMP 06/02/19 10:06 05/31/19 10:10 Delivery - Delivery Vaginal Delivery: Spontaneous Type of Anesthesia: Epidural Episiotomy/Laceration: None EBL (cc): 300 Delivery, Single - Stages of Labor Date 1st Stage Initiatied: 05/31/19 Time 1st Stage Initiated: 20:00 Date 2nd Stage Initiated: 06/01/19 Time 2nd Stage Initiated: 06:55 Date of Delivery: 06/01/19 Time of Delivery: 07:15 Time Placenta Delivered: 07:20 - Condition of Welder Fitter Helper/Shingle Sawyer Present: No Gender: Female Weight: 6 lb 9 oz Position: Left, OA Total Hours ROM (Hrs/Mins): 7H50M - 1 Minute Total Score: 9 5 Minutes Total Score: 9 - Feeding Plan Initial Plan: Elected not to breastfeed exclusively throughout hospitalization Remarks - Remarks Remarks: post op course uneventful she will repeat bile slts , bile acids in the clinic discharge today Discharge Summary Problems reviewed: Yes Reason For Visit: INDUCTION OF LABOR Current Active Problems Cholestasis during (Acute) Normal spontaneous vaginal delivery (Acute) care and examination of lactating mother (Acute) with 37 weeks completed gestation (Acute) Condition: Stable - Instructions Diet, Activity, Other Instructions: Discharge Instructions * Out of Bed * * Regular Diet * Margaret Care * Avoid sex for 6 weeks * rtc 3 weeks for follow up * REpeat bile acids & bile salt in the clinic on pp visit If you experience excessive bleeding or fever over 101 degrees, call doctor, the clinic or go to the Emergency Room. Referrals: Edson Kendrick MD [Staff Physician] - Disposition: HOME - Home Medications Comprehensive Discharge Medication List: Ambulatory Orders Vitamins (Sjr) - 1 tab PO DAILY 02/04/19 Acetaminophen [Tylenol .Regular Strength -] 650 mg PO Q3H PRN tablet 06/02/19 Ferrous Sulfate [Feosol] 325 mg PO DAILY tab 06/02/19 Ibuprofen [Motrin -] 200 mg PO Q4H PRN tablet 06/02/19 Vitamins (Sjr) - 1 tab PO DAILY tablet 06/02/19
[2019-06-03 11:20] VITALS: BP 115/80; PULSE 70; TEMP 97.8
== END 2019-06-03 14:15 | disposition home or self-care (01) | DRG 560 ==
LOC: JLDR 08:40 → J3W 06-01 09:00
PROVIDERS: ADMIT Obstetrics & Gynecology; ATTEND Obstetrics & Gynecology
PROC: 3E0P7VZ Introduction of Hormone into Female Reproductive, Via Natural or Artificial Opening (ICD-10-PCS; 2019-05-31)
PROC: 10E0XZZ Delivery of Products of Conception, External Approach (ICD-10-PCS; principal; 2019-06-01)
DX: O26.62 Liver and biliary tract disorders in childbirth (principal); K83.1 Obstruction of bile duct; Z3A.37 37 weeks gestation of pregnancy; Z37.0 Single live birth
CPT/HCPCS: 36415; 59409; 80048; 80053; 85025; 85610; 85730; 86593; 86850; 86900; 86901; 90715

== ENCOUNTER 2019-07-08 14:30 | Emergency (ER) | payer OTHER ==
[2019-07-08 14:52] VITALS: BMI 25.6
--- NOTE | 2019-07-08 15:20 | PDOC ---
History of Present Illness <Braxton Damon - Last Filed: 07/08/19 15:50> - General History Source: Patient Exam Limitations: No Limitations - History of Present Illness Initial Comments: 07/08/19 15:15 28-year-old female status post vaginal delivery 5 weeks ago with no complication's presents to the ED for evaluation of intermittent feeling that she is "out of her body." Patient states she feels sometimes she is in slow motion and then others she feels as if she is racing around. Patient states had palpitations last week but felt anxious and so went for a walk. Patient states symptoms resolved. Patient denies chest pain, nausea, abdominal pain, urinary complaints, fever, chills history of thyroid disorder, or history of cardiac disease. Patient states for the past 3 years has had intermittent chest pain and has had EKGs and lab work with no significant findings. Patient denies drug or alcohol use, shortness of breath, leg pain, orthopnea. Is this a multiple visit Asthma Patient?: No Timing/Duration: other Severity: mild Associated Symptoms: reports: other <Elvira Boyd - Last Filed: 07/16/19 11:50> - General Chief Complaint: Chest Pain Stated Complaint: CHEST PAIN Time Seen by Provider: 07/08/19 15:00 Past History <Braxton Damon - Last Filed: 07/08/19 15:50> - Travel Traveled outside of the country in the last 30 days: No Close contact w/someone who was outside of country & ill: No - Past Medical History Asthma: No Cancer: No Cardiac Disorders: No COPD: No Diabetes: No HTN: No Seizures: No Thyroid Disease: No - Surgical History Cholecystectomy: (cholethethiasis during ) - Reproductive History (#): 6 Para: 1 Therapeutic (s) & number: Yes (2) Spontaneous : 2 - Immunization History Immunization Up to Date: Yes - Psycho Social/Smoking Cessation Hx Smoking History: Never smoked Hx Alcohol Use: No Drug/Substance Use Hx: No Hx Substance Use Treatment: No Patient Lives Alone: No Lives with/in: spouse/SO <Elvira Boyd - Last Filed: 07/16/19 11:50> - Past Medical History Allergies/Adverse Reactions: Allergies Allergy/AdvReac Type Severity Reaction Status Date / Time No Known Allergies Allergy Verified 07/08/19 14:52 Home Medications: Ambulatory Orders Vitamins (Sjr) - 1 tab PO DAILY 02/04/19 Acetaminophen [Tylenol .Regular Strength -] 650 mg PO Q3H PRN tablet 06/02/19 Ferrous Sulfate [Feosol] 325 mg PO DAILY tab 06/02/19 Ibuprofen [Motrin -] 200 mg PO Q4H PRN tablet 06/02/19 Vitamins (Sjr) - 1 tab PO DAILY tablet 06/02/19 Review of Systems - Review of Systems Able to Perform ROS?: Yes Is the patient limited [place]ian proficient: No Constitutional: No: Symptoms Reported HEENTM: No: Symptoms Reported Respiratory: No: Symptoms reported Cardiac (ROS): Yes: Palpitations ABD/GI: No: Symptoms Reported : No: Symptoms Reported Musculoskeletal: No: Symptoms Reported Integumentary: No: Symptoms Reported Neurological: No: Symptoms reported Psychiatric: Yes: Anxiety, Mood Swings. No: Depression, Frequent Crying, Stressors, Sleep Pattern Change Endocrine: No: Symptoms Reported Hematologic/Lymphatic: No: Symptoms Reported <Elvira Boyd - Last Filed: 07/16/19 11:50> *Physical Exam - Vital Signs Last Vital Signs Temp Pulse Resp BP Pulse Ox 98.7 F 82 18 97/61 99 07/08/19 14:49 07/08/19 14:49 07/08/19 14:49 07/08/19 14:49 07/08/19 14:49 <Braxton Damon - Last Filed: 07/08/19 15:50> - Vital Signs Last Vital Signs Temp Pulse Resp BP Pulse Ox 98.7 F 82 18 97/61 99 07/08/19 14:49 07/08/19 14:49 07/08/19 14:49 07/08/19 14:49 07/08/19 14:49 - Physical Exam General Appearance: Yes: Nourished, Appropriately Dressed. No: Apparent Distress HEENT: positive: EOMI, RAFFAELE, Pharynx Normal. negative: Pale Conjunctivae Neck: positive: Normal Thyroid, Supple Respiratory/Chest: positive: Lungs Clear, Normal Breath Sounds. negative: Respiratory Distress, Accessory Muscle Use Cardiovascular: positive: Regular Rhythm, Regular Rate. negative: Murmur Gastrointestinal/Abdominal: positive: Soft. negative: Tenderness Musculoskeletal: negative: CVA Tenderness Extremity: positive: Normal Inspection Integumentary: positive: Normal Color, Warm, Moist Neurologic: positive: Motor Strength 5/5 (Ambulatory) <Elvira Boyd - Last Filed: 07/16/19 11:50> Heart Score/ECG Review #1 ECG reviewed & interpreted by me at: 15:34 General ECG Interpretation: Sinus Rhythm, Normal Rate (64), Normal Intervals (qtc 392), No acute ischemic changes <Braxton Damon - Last Filed: 07/08/19 15:50> - ECG Intrepretation Rhythm: Regular Rhythm (nsr 64, no st elevation/ depression) <Elvira Boyd - Last Filed: 07/16/19 11:50> ED Treatment Course - LABORATORY CBC & Chemistry Diagram: 07/08/19 15:18 07/08/19 15:18 - ADDITIONAL ORDERS Additional order review: Laboratory Results 07/08/19 15:18 Urine Color Yellow Urine Appearance Clear Urine pH 6.0 Ur Specific [place] 1.025 Urine Protein Negative Urine Glucose (UA) Negative Urine Ketones Negative Urine Blood Negative Urine Nitrite Negative Urine Bilirubin Negative Urine Urobilinogen 0.2 Ur Leukocyte Esterase Trace Urine WBC (Auto) 2 Urine RBC (Auto) 0 Urine Casts (Auto) 3 U Epithel Cells (Auto) 4.8 Urine Bacteria (Auto) 28.5 07/08/19 15:18 RBC 4.58 MCV 86.5 MCHC 33.0 RDW 15.0 MPV 8.2 Neutrophils % 44.8 D Lymphocytes % 42.2 H D Monocytes % 6.9 Eosinophils % 5.3 H Basophils % 0.8 <Braxton Damon - Last Filed: 07/08/19 15:50> - LABORATORY CBC & Chemistry Diagram: 07/08/19 15:18 07/08/19 15:18 <Elvira Boyd - Last Filed: 07/16/19 11:50> Medical Decision Making - Medical Decision Making 07/08/19 15:19 Chief complaint: Patient states her head feels foggy, is often feeling as if she is in super speed and then super slow speed. Patient also states palpitations last week when she felt overwhelmed with regular life stressors. Patient status post vaginal delivery 5 weeks ago but has no chest pain, shortness of breath, leg pain or history of clotting disorder. Exam: Patient appears calm no reproducible chest pain lungs clear. Vital signs stable. Plan: EKG, urine, labs including TSH <Elvira Boyd - Last Filed: 07/16/19 11:50> Discharge <Braxton Damon - Last Filed: 07/08/19 15:50> - Discharge Information Problems reviewed: Yes <Elvira Boyd - Last Filed: 07/16/19 11:50> - Discharge Information Clinical Impression/Diagnosis: Fatigue Qualifiers: Fatigue type: unspecified Qualified Code(s): R53.83 - Other fatigue Chest pain Qualifiers: Chest pain type: unspecified Qualified Code(s): R07.9 - Chest pain, unspecified Condition: Stable Disposition: HOME - Patient Discharge Instructions Patient Printed Discharge Instructions: DI for Atypical Chest Pain Additional Instructions: Your Discharge Instructions: You must call primary care physician within 24 hours to arrange follow-up. Return to the Emergency Department with any new, persistent or worsening symptoms, for fever, chills, SOB, dizziness or any other concerning changes that may occur.
[2019-07-08 15:42] LABS: BASO % 0.8 % (0-2.0); EOS % 5.3 % (0-4.5); HEMATOCRIT 39.6 % (32.4-45.2); HEMOGLOBIN 13.1 GM/dL (10.7-15.3); LYMPH % 42.2 % (8-40); MCH 28.6 pg (25.7-33.7); MEAN CELL VOLUME 86.5 fl (80-96); MEAN PLT VOLUME 8.2 fl (7.5-11.1); MONO % 6.9 % (3.8-10.2); NEUT % 44.8 % (42.8-82.8); PLATELET COUNT 289 K/MM3 (134-434); RBC 4.58 M/mm3 (3.60-5.2); WHITE BLOOD COUNT 6.4 K/mm3 (4.0-10.0)
[2019-07-08 15:45] LABS: EPI CELLS 4.8 /HPF (0-5/HPF); HYALINE CASTS 3 /lpf (0-8); URINE APPEARANCE CLEAR; URINE BACTERIA 28.5 /hpf (NEGATIVE); URINE BILIRUBIN NEGATIVE (NEGATIVE); URINE COLOR YELLOW; URINE GLUCOSE (UA) NEGATIVE (NEGATIVE); URINE KETONE NEGATIVE (NEGATIVE); URINE LEUK ESTERASE TRACE (NEGATIVE); URINE NITRITE NEGATIVE (NEGATIVE); URINE PROTEIN NEGATIVE (NEGATIVE); URINE RBC 0 /hpf (0-4); URINE UROBILINOGEN 0.2 mg/dL (0.2-1.0); URINE WBC 2 /hpf (0-5)
[2019-07-08 16:12] LABS: ALBUMIN 3.4 g/dl (3.4-5.0); ALK PHOS 116 U/L (45-117); ANION GAP 8 MMOL/L (8-16); BILIRUBIN,TOTAL 0.4 mg/dL (0.2-1); BLOOD UREA NITROGEN 12.8 mg/dL (7-18); CALCIUM 8.5 mg/dL (8.5-10.1); CHLORIDE 107 mmol/L (98-107); CO2 25 mmol/L (21-32); CREATININE 0.7 mg/dL (0.55-1.3); GLUCOSE,RANDOM 85 mg/dL (74-106); POTASSIUM 4.1 mmol/L (3.5-5.1); SGOT/AST 16 U/L (15-37); SGPT/ALT 24 U/L (13-61); SODIUM 141 mmol/L (136-145); TOT PROT 7.3 g/dl (6.4-8.2)
--- NOTE | 2019-07-08 17:35 | PDOC ---
*Physical Exam - Vital Signs Last Vital Signs Temp Pulse Resp BP Pulse Ox 98.7 F 82 18 97/61 99 07/08/19 14:49 07/08/19 14:49 07/08/19 14:49 07/08/19 14:49 07/08/19 14:49 ED Treatment Course - LABORATORY CBC & Chemistry Diagram: 07/08/19 15:18 07/08/19 15:18 - ADDITIONAL ORDERS Additional order review: Laboratory Results 07/08/19 07/08/19 15:18 15:18 Sodium 141 Potassium 4.1 Chloride 107 Carbon Dioxide 25 Anion Gap 8 BUN 12.8 Creatinine 0.7 Est GFR (CKD-EPI)AfAm 137.62 Est GFR (CKD-EPI)NonAf 118.74 Random Glucose 85 Calcium 8.5 Total Bilirubin 0.4 AST 16 ALT 24 Alkaline Phosphatase 116 Creatine Kinase 123 Troponin I < 0.02 Total Protein 7.3 Albumin 3.4 TSH 1.41 Urine Color Yellow Urine Appearance Clear Urine pH 6.0 Ur Specific [place] 1.025 Urine Protein Negative Urine Glucose (UA) Negative Urine Ketones Negative Urine Blood Negative Urine Nitrite Negative Urine Bilirubin Negative Urine Urobilinogen 0.2 Ur Leukocyte Esterase Trace Urine WBC (Auto) 2 Urine RBC (Auto) 0 Urine Casts (Auto) 3 U Epithel Cells (Auto) 4.8 Urine Bacteria (Auto) 28.5 07/08/19 15:18 RBC 4.58 MCV 86.5 MCHC 33.0 RDW 15.0 MPV 8.2 Neutrophils % 44.8 D Lymphocytes % 42.2 H D Monocytes % 6.9 Eosinophils % 5.3 H Basophils % 0.8 Medical Decision Making - Medical Decision Making 07/08/19 16:00 Patient was endorsed to me to follow labs and disposition. Patient seen and reevaluated she has no acute complaints. 07/08/19 17:35 Lab work reviewed noted no acute findings. Patient has appointment with her primary care doctor on the at which point she states she will get a cardiology referral. I discussed the physical exam findings, ancillary test results and final diagnoses with the patient. I answered all of the patient's questions. The patient was satisfied with the care received and felt comfortable with the discharge plan and treatment plan. The Patient agrees to follow up with the primary care physician within 24-72 hours. Discharge - Discharge Information Problems reviewed: Yes Clinical Impression/Diagnosis: Fatigue Qualifiers: Fatigue type: unspecified Qualified Code(s): R53.83 - Other fatigue Chest pain Qualifiers: Chest pain type: unspecified Qualified Code(s): R07.9 - Chest pain, unspecified Condition: Stable Disposition: HOME - Follow up/Referral - Patient Discharge Instructions Patient Printed Discharge Instructions: DI for Atypical Chest Pain Additional Instructions: Your Discharge Instructions: You must call primary care physician within 24 hours to arrange follow-up. Return to the Emergency Department with any new, persistent or worsening symptoms, for fever, chills, SOB, dizziness or any other concerning changes that may occur. - Post Discharge Activity
[2019-07-08 18:11] VITALS: BP 105/70; PULSE 76; TEMP 97.8
--- NOTE | 2019-07-09 09:33 | EKG ---
Test Reason : Blood Pressure : / mmHG Vent. Rate : 064 BPM Atrial Rate : 064 BPM P-R Int : 156 ms QRS Dur : 088 ms QT Int : 380 ms P-R-T Axes : 049 036 039 degrees QTc Int : 392 ms NORMAL SINUS RHYTHM NORMAL ECG WHEN COMPARED WITH ECG OF 25-NOV-2018 23:16, NO SIGNIFICANT CHANGE WAS FOUND Confirmed by Franny Romero ([id number]) on 07/09/2019 9:33:36 AM Referred By: Confirmed By:Franny Romero
== END 2019-07-08 18:10 | disposition home or self-care (01) ==
LOC: JER 14:30
DX: R07.9 Chest pain, unspecified (principal); R53.83 Other fatigue
CPT/HCPCS: 36415; 80053; 81003; 82550; 84443; 84484; 85025; 87077; 87086; 93005; 93010; 99284-25